=== PATIENT | female | born 1995 | race Caucasian/White ===

== ENCOUNTER 2020-03-29 15:23 | Emergency (ER) | payer BC, OTHER ==
[~2020-03-29] VITALS: Ht 160 cm; Wt 66.2 kg
[2020-03-29 15:27] VITALS: BP 128/86
== END 2020-03-29 16:18 | disposition home or self-care (01) ==
LOC: ED 16:08
DX: J00 Acute nasopharyngitis [common cold] (principal); Z20.828 Contact with and (suspected) exposure to other viral communicable diseases
CPT/HCPCS: 87635; 99283